=== PATIENT | female | born 1990 | race Caucasian/White ===

== ENCOUNTER 2017-10-27 19:57 | Emergency (ER) | payer BC, MEDICAID, SELFPAY ==
[2017-10-27 20:04] VITALS: BP 133/84
[2017-10-27] MEDS ORDERED: methylPREDNISolone Sodium Succinate 125 MG/2 ML SDV IVPUSH ONE (20:27)
[2017-10-27] MEDS ORDERED: Albuterol/Ipratropium 3.0-0.5 MG/3 ML Neb Soln NEB ONE ×2 (20:32→21:45)
[2017-10-27] MEDS ORDERED: Sodium Chloride 0.9% 10 ML Syringe FLUSH PRN (20:33)
--- NOTE | 2017-10-27 21:53 | EDM.PDOC ---
ED HPI GENERAL MEDICAL PROBLEM - General Chief Complaint: Respiratory Problem Stated Complaint: SOB Time Seen by Provider: 10/27/17 20:01 - History of Present Illness Onset: Today Treatments BUDGET DIRECTOR: Reports: Other (see below) Other Treatments BUDGET DIRECTOR: Valarie 1914 - Related Data Allergies Allergy/AdvReac Type Severity Reaction Status Date / Time acetaminophen [From [place]] Allergy Vomiting Verified 10/27/17 20:04 hydrocodone [From [place]] Allergy Vomiting Verified 10/27/17 20:04 Home Meds: Home Meds Fluticasone/Salmeterol [Advair 250-50] 1 puff INH DAILY 06/22/13 [History] Albuterol [Ventolin HFA] 2 inh INH Q4H PRN 04/20/14 [History] Albuterol Sulfate 2.5 mg IH Q4H PRN 05/11/14 [History] Acetaminophen [Tylenol] 650 mg PO Q4H PRN #0 tablet 05/21/14 [Rx] Ibuprofen [Motrin] 600 mg PO Q4H PRN #16 tablet 05/21/14 [Rx] Hydrocodone/Acetaminophen [Hydrocodon-Acetaminophen 5-325] 1 each PO QID PRN [History] Past Medical History - Past Health History Medical/Surgical History: Denies Medical/Surgical History Respiratory History: Reports: Asthma Gastrointestinal History: Reports: Hemorrhoids Social & Family History - Family History Family Medical History: Noncontributory - Tobacco Use Smoking Status *Q: Never Smoker - Caffeine Use Caffeine Use: Reports: None - Recreational Drug Use Recreational Drug Use: No ED ROS GENERAL - Review of Systems Review Of Systems: See Below ED EXAM, GENERAL - Physical Exam Exam: See Below Course - Vital Signs Last Recorded V/S: Last Vital Signs Temp 37.0 C 10/27/17 20:01 Pulse 100 10/27/17 20:01 Resp 22 H 10/27/17 20:01 BP 133/84 10/27/17 20:01 Pulse Ox 100 10/27/17 21:34 - Orders/Labs/Meds Orders: Active Orders 24 hr Category Date Time Status RT Aerosol Therapy [RC] ASDIRECTED Care 10/27/17 20:32 Active RT Aerosol Therapy [RC] ASDIRECTED Care 10/27/17 21:34 Active CXR [Chest 2V] [CR] Stat Exams 10/27/17 20:26 Taken Sodium Chloride 0.9% [Saline Flush] Med 10/27/17 20:33 Active 10 ml FLUSH ASDIRECTED PRN Saline Lock Insert [OM.PC] Routine Oth 10/27/17 20:33 Ordered Medication Orders Sodium Chloride (Saline Flush) 10 ml FLUSH ASDIRECTED PRN PRN Reason: Keep Vein Open Last Admin: 10/27/17 20:48 Dose: 10 ml Meds: Medications Generic Name Dose Route Start Last Admin Trade Name Freq PRN Reason Stop Dose Admin Sodium Chloride 10 ml 10/27/17 20:33 10/27/17 20:48 Saline Flush FLUSH 10 ml ASDIRECTED PRN Administration Keep Vein Open Discontinued Medications Generic Name Dose Route Start Last Admin Trade Name Freq PRN Reason Stop Dose Admin Albuterol/Ipratropium 3 ml 10/27/17 20:32 10/27/17 20:51 Duoneb 3.0-0.5 Mg/3 Ml NEB 10/27/17 20:33 3 ml ONETIME ONE Administration Albuterol/Ipratropium 3 ml 10/27/17 21:45 10/27/17 21:43 Duoneb 3.0-0.5 Mg/3 Ml NEB 10/27/17 21:46 3 ml ONETIME ONE Administration Methylprednisolone Sodium Succinate 125 mg 10/27/17 20:27 10/27/17 20:47 Solu-Medrol IVPUSH 10/27/17 20:28 125 mg ONETIME ONE Administration Departure - Departure Time of Disposition: 23:20 Disposition: Home, Self-Care 01 Condition: Good Clinical Impression: Acute asthma - Discharge Information Referrals: PCP,None [Primary Care Provider] - Forms: ED Department Discharge - My Orders Last 24 Hours: My Active Orders 10/27/17 20:26 CXR [Chest 2V] [CR] Stat 10/27/17 20:32 RT Aerosol Therapy [RC] ASDIRECTED 10/27/17 20:33 Sodium Chloride 0.9% [Saline Flush] 10 ml FLUSH ASDIRECTED PRN Saline Lock Insert [OM.PC] Routine 10/27/17 21:34 RT Aerosol Therapy [RC] ASDIRECTED - Assessment/Plan Last 24 Hours: My Active Orders 10/27/17 20:26 CXR [Chest 2V] [CR] Stat 10/27/17 20:32 RT Aerosol Therapy [RC] ASDIRECTED 10/27/17 20:33 Sodium Chloride 0.9% [Saline Flush] 10 ml FLUSH ASDIRECTED PRN Saline Lock Insert [OM.PC] Routine 10/27/17 21:34 RT Aerosol Therapy [RC] ASDIRECTED
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
--- NOTE | 2017-10-29 08:37 | CR ---
Chest: Two views of the chest were obtained. Comparison: No prior chest x-ray. Heart size and mediastinum are normal. Lungs are clear without acute parenchymal change. Bony structures are unremarkable. Impression: 1. Nothing acute is seen on two-view chest x-ray. Diagnostic code #1
== END 2017-10-27 23:40 | disposition home or self-care (01) ==
LOC: JD.ED 19:57
DX: J45.901 Unspecified asthma with (acute) exacerbation (principal); Z88.5 Allergy status to narcotic agent
CPT/HCPCS: 71046; 94640; 96374; 99285; J2930; J7050; 99283; J7620-GY

== ENCOUNTER 2017-11-18 11:15 | Emergency (ER) | payer SELFPAY ==
[2017-11-18 11:20] VITALS: BP 120/67
[2017-11-18] MEDS ORDERED: Albuterol/Ipratropium 3.0-0.5 MG/3 ML Neb Soln NEB ONE (11:49)
--- NOTE | 2017-11-18 11:55 | EDM.PDOC ---
ED HPI GENERAL MEDICAL PROBLEM - General Chief Complaint: Respiratory Problem Stated Complaint: ASTHMA ATTACK Time Seen by Provider: 11/18/17 11:45 Source of Information: Reports: Patient History Limitations: Reports: No Limitations - History of Present Illness INITIAL COMMENTS - FREE TEXT/NARRATIVE: This is a 27 y/o F with h/o asthma that comes in today with SOB/wheezing. She states she was here about 2 weeks ago for an asthma attack and then felt she got a cold about 1 week ago. She was preemptively put on Z-daily and prednisone by the ER doctor and was beginning to feel better, but about 3 days ago she started to feel worse. She currently c/o congestion, productive cough with green sputum, feeling "hot" with chills, pleuritic CP and wheezing. She states she "thinks this may have turned into something else" and is similar to when she has had PNA in the past (last time was 2 years ago). She did try OTC Tylenol this morning with no relief of pain and has tried using her inhalers at home with no relief. She is afebrile at this time, but she did take Tylenol this AM. She currently moved back from [place] and does not have a PCP in town yet. - Related Data Allergies Allergy/AdvReac Type Severity Reaction Status Date / Time acetaminophen [From [place]] Allergy Vomiting Verified 10/27/17 20:04 hydrocodone [From [place]] Allergy Vomiting Verified 10/27/17 20:04 Home Meds: Home Meds Fluticasone/Salmeterol [Advair 250-50] 1 puff INH DAILY 06/22/13 [History] Albuterol [Ventolin HFA] 2 inh INH Q4H PRN 04/20/14 [History] Albuterol Sulfate 2.5 mg IH Q4H PRN 05/11/14 [History] Acetaminophen [Tylenol] 650 mg PO Q4H PRN #0 tablet 05/21/14 [Rx] Ibuprofen [Motrin] 600 mg PO Q4H PRN #16 tablet 05/21/14 [Rx] Hydrocodone/Acetaminophen [Hydrocodon-Acetaminophen 5-325] 1 each PO QID PRN [History] Acetaminophen with Codeine [Tylenol with Codeine #3 Tablet] 1 tab PO ASDIRECTED PRN 11/18/17 [History] Past Medical History - Past Health History Medical/Surgical History: Denies Medical/Surgical History Respiratory History: Reports: Asthma Gastrointestinal History: Reports: Hemorrhoids Social & Family History - Family History Family Medical History: Noncontributory - Tobacco Use Smoking Status *Q: Never Smoker - Caffeine Use Caffeine Use: Reports: Coffee - Recreational Drug Use Recreational Drug Use: No ED ROS GENERAL - Review of Systems Review Of Systems: See Below Constitutional: Reports: Fever, Chills, Malaise, Fatigue. Denies: Night Sweats , Decreased Appetite HEENT: Reports: Glasses, Sinus Problem (congestion). Denies: Throat Pain Respiratory: Reports: Shortness of Breath, Wheezing, Pleuritic Chest Pain, Cough , Sputum (green). Denies: Hemoptysis Cardiovascular: Reports: Dyspnea on Exertion Endocrine: Reports: Fatigue GI/Abdominal: Reports: No Symptoms. Denies: Abdominal Pain, Diarrhea, Decreased Appetite, Nausea, Vomiting Skin: Reports: No Symptoms. Denies: Cyanosis Psychiatric: Reports: No Symptoms ED EXAM, GENERAL - Physical Exam Exam: See Below Exam Limited By: No Limitations General Appearance: Alert, WD/WN, No Apparent Distress Eye Exam: Bilateral Eye: EOMI, PERRL Ears: Normal External Exam, Hearing Grossly Normal Nose: Normal Inspection Throat/Mouth: Normal Inspection, Normal Lips, Normal Teeth, Normal Gums, Normal Oropharynx, Normal Voice, No Airway Compromise Neck: Normal Inspection, Supple, Non-Tender, Full Range of Motion Respiratory/Chest: No Respiratory Distress, No Accessory Muscle Use, Chest Non- Tender, Rhonchi, Wheezing (throughout lung george) Cardiovascular: Normal Peripheral Pulses, Regular Rate, Rhythm, No Edema, No Gallop, No JVD, No Murmur, No Rub GI/Abdominal: Normal Bowel Sounds, Soft, Non-Tender, No Organomegaly, No Distention, No Abnormal Bruit, No Mass Neurological: Alert, Oriented, CN II-XII Intact, Normal Cognition, Normal Gait, Normal Reflexes, No Motor/Sensory Deficits Psychiatric: Normal Affect, Normal Mood Skin Exam: Warm, Dry, Intact, Normal Color, No Rash Course - Vital Signs Last Recorded V/S: Last Vital Signs Temp 97.6 F 11/18/17 11:20 Pulse 88 11/18/17 11:20 Resp 20 11/18/17 11:20 BP 120/67 11/18/17 11:20 Pulse Ox 99 11/18/17 11:49 - Orders/Labs/Meds Orders: Active Orders 24 hr Category Date Time Status RT Aerosol Therapy [RC] ASDIRECTED Care 11/18/17 11:49 Active RT Peak Flow Measurement [RC] ASDIRECTED Care 11/18/17 12:14 Active CXR [Chest 2V] [CR] Stat Exams 11/18/17 11:48 Taken Labs: Laboratory Tests 11/18/17 Range/Units 11:58 WBC 5.89 (3.98-10.04) K/mm3 RBC 4.32 (3.98-5.22) M/mm3 Hgb 13.1 (11.2-15.7) gm/L Hct 39.5 (34.1-44.9) % MCV 91.4 (79.4-94.8) fl MCH 30.3 (25.6-32.2) pg MCHC 33.2 (32.2-35.5) g/dl RDW Std Deviation 43.2 (36.4-46.3) fL Plt Count 221 (182-369) K/mm3 MPV 10.3 (9.4-12.3) fl Neut % (Auto) 47.7 (34.0-71.1) % Lymph % (Auto) 31.9 (19.3-51.7) % [place] % (Auto) 9.3 (4.7-12.5) % Eos % (Auto) 10.4 H (0.7-5.8) Baso % (Auto) 0.5 (0.1-1.2) % Neut # (Auto) 2.81 (1.56-6.13) K/mm3 Lymph # (Auto) 1.88 (1.18-3.74) K/mm3 [place] # (Auto) 0.55 H (0.24-0.36) K/mm3 Eos # (Auto) 0.61 H (0.04-0.36) K/mm3 Baso # (Auto) 0.03 (0.01-0.08) K/mm3 Meds: Medications Discontinued Medications Generic Name Dose Route Start Last Admin Trade Name Freq PRN Reason Stop Dose Admin Albuterol/Ipratropium 3 ml 11/18/17 11:49 11/18/17 12:08 Duoneb 3.0-0.5 Mg/3 Ml NEB 11/18/17 11:50 3 ml ONETIME ONE Administration Prednisone 40 mg 11/18/17 12:03 Prednisone PO 11/18/17 12:04 ONETIME ONE - Re-Assessments/Exams Free Text/Narrative Re-Assessment/Exam: 11/18/17 12:00 Ordered CXR, CBC, Prednisone 40mg PO now and Duo nebs. 11/18/17 12:41 Labs are back and are WNL. CXR reviewed by myself and Dr. Vale with no acute abnormalities. Will check to see how pt is feeling after Duonebs and prednisone. 11/18/17 12:51 She is feeling better after treatments. Will send home with Prednisone 20mg x5 days. Departure - Departure Time of Disposition: 12:51 Disposition: Home, Self-Care 01 Condition: Fair Clinical Impression: Exacerbation of asthma - Discharge Information *PRESCRIPTION DRUG MONITORING PROGRAM REVIEWED*: Not Applicable *COPY OF PRESCRIPTION DRUG MONITORING REPORT IN PATIENT RADHA: Not Applicable Instructions: Asthma, Adult Referrals: PCP,None [Primary Care Provider] - Forms: ED Department Discharge Additional Instructions: You were seen today for SOB and wheezing with symptoms of cold. Your labs showed that you do not have an infectious process at this time and your Chest Xray did not show Pneumonia. You were given Duo-neb and prednisone with some relief and will be sent home on prednisone 20mg daily for 5 days. Follow up with clinic/Primary care doctor if symptoms do not improve. Please return to ED if worsening of symptoms, such as development of fever/ chills, difficulty breathing, worsening cough. - My Orders Last 24 Hours: My Active Orders 11/18/17 11:48 CXR [Chest 2V] [CR] Stat 11/18/17 11:49 RT Aerosol Therapy [RC] ASDIRECTED 11/18/17 12:14 RT Peak Flow Measurement [RC] ASDIRECTED - Assessment/Plan Last 24 Hours: My Active Orders 11/18/17 11:48 CXR [Chest 2V] [CR] Stat 11/18/17 11:49 RT Aerosol Therapy [RC] ASDIRECTED 11/18/17 12:14 RT Peak Flow Measurement [RC] ASDIRECTED
[2017-11-18] MEDS ORDERED: predniSONE 1 MG Tab PO ONE (12:03)
--- NOTE | 2017-11-19 07:12 | CR ---
Chest: Two views of the chest were obtained. Comparison: Prior chest x-ray of 10/27/17. Heart size and mediastinum are within normal limits. Lungs are clear. Bony structures appear unremarkable for the patient's age. Impression: 1. Nothing acute is seen on two-view chest x-ray. Diagnostic code #1
== END 2017-11-18 13:05 | disposition home or self-care (01) ==
LOC: JD.ED 11:15
DX: J45.901 Unspecified asthma with (acute) exacerbation (principal); Z88.6 Allergy status to analgesic agent
CPT/HCPCS: 36415; 71046; 71046-26; 85025; 94640; 99284; 99285-25; J7620-GY

== ENCOUNTER 2017-12-04 20:39 | Emergency (ER) | payer OTHER ==
[2017-12-04 21:08] VITALS: BP 120/65
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
--- NOTE | 2017-12-05 07:45 | US ---
Right lower extremity deep venous ultrasound: Duplex and color flow imaging was obtained of the right common femoral, proximal greater saphenous, superficial femoral, popliteal, posterior tibial and peroneal veins. Comparison: Prior right lower extremity deep venous ultrasound dated 05/21/14. Findings: Normal phasic flow, augmentation and compression are seen. Left common femoral vein also showed normal augmentation. Impression: 1. No evidence of deep venous thrombosis within the right lower extremity or within the left common femoral vein. Diagnostic code #1 I agree with preliminary report issued by [facility] ([facility] report finalized on 12/04/17, 11:49 PM Central Time)
== END 2017-12-04 23:00 | disposition home or self-care (01) ==
LOC: JD.ED 20:39
DX: M79.89 Other specified soft tissue disorders (principal); J45.909 Unspecified asthma, uncomplicated; Z79.899 Other long term (current) drug therapy
CPT/HCPCS: 93971-26-RT; 93971-RT; 99283; 99284-25

== ENCOUNTER → 2018-04-09 | Day surgery (SDC) | payer BC ==
[~2018-04-09] MED LIST: Acetaminophen/oxyCODONE 325-5 MG Tab PO PRN; Albuterol 0.083% 2.5 MG/3 ML Neb Soln NEB PRN; Dexamethasone 4 MG/ML 5 ML MDV ONE; HYDROmorphone 0.5 MG/0.5 ML Syringe IVPUSH PRN; HYDROmorphone 0.5 MG/0.5 ML Syringe ONE; Ketorolac 30 MG/ML SDV ONE; Lactated Ringers 1,000 ML IV SCH; Lactated Ringers 1,000 ML ONE; Lidocaine 1% 4 ML ONE; Lidocaine 1% with EPINEPHrine 1:100,000 20 ML MDV ONE; Lidocaine 1%/Sod Bicarbonate in NS 8.4% 1 ML Syringe IDERM PRN; Meperidine 50 MG/ML Vial IVPUSH PRN; Midazolam 1 MG/ML 2 ML SDV ONE; Neostigmine Methylsulfate 1 MG/ML 5 ML Syringe ONE; Ondansetron 4 MG/2 ML SDV IVPUSH PRN; Ondansetron 4 MG/2 ML SDV ONE; Propofol 200 MG/20 ML SDV ONE; Rocuronium 50 MG/5 ML Vial ONE; Sodium Chloride 0.9% 10 ML Syringe FLUSH PRN; Sodium Chloride 0.9% 50 ML SDV ONE; ceFAZolin 1 GM Vial ONE; fentaNYL 100 MCG/2 ML SDV IVPUSH PRN; fentaNYL 250 MCG/5 ML SDV ONE
--- NOTE | 2018-04-09 07:20 | PCM.PREANE ---
Preanesthetic Assessment - Procedure Proposed Procedure: total vag hysterectomy - Anesthesia/Transfusion/Family Hx Anesthesia History: Prior Anesthesia Without Reaction Family History of Anesthesia Reaction: No Transfusion History: No Prior Transfusion(s) - Review of Systems General: No Symptoms Pulmonary: No Symptoms Cardiovascular: No Symptoms Gastrointestinal: No Symptoms Neurological: No Symptoms (two in last 10 years), Seizure Other: Reports: None - Physical Assessment NPO Status Date: 04/08/18 NPO Status Time: 19:00 (sip with pill) O2 Sat by Pulse Oximetry: 97 Respiratory Rate: 16 Vital Signs: Last Vital Signs Temp 98.0 F 04/09/18 06:40 Pulse 95 04/09/18 06:40 Resp 16 04/09/18 06:40 BP 125/75 04/09/18 06:40 Pulse Ox 97 04/09/18 06:40 Height: 5 ft 7 in Weight: 110.223 kg ASA Class: 2 Mental Status: Alert & Oriented x3 Airway Class: Mallampati = 1 Dentition: Reports: Normal Dentition Thyro-Mental Finger Breadths: 3 Mouth Opening Finger Breadths: 3 ROM/Head Extension: Full Lungs: Clear to Auscultation, Normal Respiratory Effort Cardiovascular: Regular Rate, Regular Rhythm - Lab Values: Laboratory Last Values Urine HCG, Qual Negative (NEGATIVE) 04/09/18 06:37 - Allergies Allergies/Adverse Reactions: Allergies Allergy/AdvReac Type Severity Reaction Status Date / Time No Known Allergies Allergy Verified 04/08/18 14:13 - Blood Blood Available: Yes - Acknowledgements Anesthesia Type Planned: General Anesthesia Pt an Appropriate Candidate for the Planned Anesthesia: Yes Alternatives and Risks of Anesthesia Discussed w Pt/Guardian: Yes Pt/Guardian Understands and Agrees with Anesthesia Plan: Yes PreAnesthesia Questionnaire - Past Health History Medical/Surgical History: Denies Medical/Surgical History HEENT History: Reports: Impaired Vision, Other (See Below) Cardiovascular History: Reports: None Respiratory History: Reports: Asthma, Pneumonia, Recurrent Gastrointestinal History: Reports: Hemorrhoids Genitourinary History: Reports: None [employer]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: Endometriosis, , Other (See Below) Other OB/BYN History: x3, pelvic pain, hypermenorrhea Musculoskeletal History: Reports: None, Other (See Below) Neurological History: Reports: Seizure Other Neuro History: x 2 in the last 10 years Psychiatric History: Reports: Anxiety, Bipolar, Depression Other Psychiatric History: Appt today 01/02/18 Endocrine/Metabolic History: Reports: Obesity/BMI 30+ Other Endocrine/Metabolic History: Pt getting thyroid tested- will get results today 01/02/18 Hematologic History: Reports: None Immunologic History: Reports: None Oncologic (Cancer) History: Reports: None Dermatologic History: Reports: None - Infectious Disease History Infectious Disease History: Reports: Chicken Pox - Past Surgical History Head Surgeries/Procedures: Reports: None HEENT Surgical History: Reports: Oral Surgery, Other (See Below) Other HEENT Surgeries/Procedures: wisdom teeth removed Cardiovascular Surgical History: Reports: None Respiratory Surgical History: Reports: None GI Surgical History: Reports: Appendectomy, Cholecystectomy, EGD Female Surgical History: Reports: D&C, Other (See Below) (hystroscopy) Male Surgical History: Reports: None Neurological Surgical History: Reports: None Musculoskeletal Surgical History: Reports: Other (See Below) Other Musculoskeletal Surgeries/Procedures:: wrist tendonitis with surgical intervention Oncologic Surgical History: Reports: None Dermatological Surgical History: Reports: None - SUBSTANCE USE Smoking Status *Q: Never Smoker Tobacco Use Within Last Twelve Months: No Second Hand Smoke Exposure: No Days Per Week of Alcohol Use: 0 Recreational Drug Use History: No - HOME MEDS Home Medications: Home Meds Albuterol [Ventolin HFA] 2 inh INH Q4H PRN 04/20/14 [History] Albuterol Sulfate 1 dose NEB Q4H PRN 02/04/18 [History] Fluticasone/Vilanterol [Breo Ellipta 100-25 MCG Inhalation Kit] 1 puff INH DAILY 02/04/18 [History] OXcarbazepine [Oxcarbazepine] 450 mg PO BEDTIME 02/04/18 [History] Prazosin HCl [Prazosin] 4 mg PO BEDTIME 02/04/18 [History] OXcarbazepine [Oxcarbazepine] 150 mg PO QAM 04/08/18 [History] - CURRENT (IN HOUSE) MEDS Current Meds: Current Medications Lactated Ringer's (Ringers, Lactated) 1,000 mls @ 125 mls/hr IV ASDIRECTED CATE Stop: 04/09/18 23:00 Lidocaine/Sodium Bicarbonate (Buffered Lidocaine 1% In Ns 8.4%) 0.25 ml IDERM ONETIME PRN PRN Reason: Prior to IV Start Stop: 04/09/18 18:00 Sodium Chloride (Saline Flush) 10 ml FLUSH ASDIRECTED PRN PRN Reason: Keep Vein Open Stop: 04/09/18 18:00
--- NOTE | 2018-04-09 11:19 | PCM.OPNOTE ---
- General Post-Op/Procedure Note Date of Surgery/Procedure: 04/09/18 Operative Procedure(s): Total vaginal hysterectomy bilateral salpingectomy [id number] Pre Op Diagnosis: Dysmenorrhea, heavy and irregular menstrual periods Post-Op Diagnosis: Same Anesthesia Technique: General ET Tube Primary Surgeon: Tristan Bryan Secondary Surgeon: Vivek Yen Anesthesia Provider: Last Torres Associate Professor Of Art: Mane Brown (PATRICIO) Reason Associate Professor Of Art Was Necessary: Assist in surgery, decrease comorbidity and mortality Role of Associate Professor Of Art: Assist in surgery, decrease comorbidity and mortality Fluid Replacement, Intraop: 1,300 Output, Urine Amount: 240 EBL in mLs: 150 Drain/Tube Comments:: None Complications: None Condition: Good Free Text/Narrative:: Intake & Output 04/08/18 04/09/18 04/09/18 22:59 06:59 14:59 Output Total 240 Balance -240 Patient was transported to the operating room and placed under general anesthesia in the low dorsal lithotomy position and prepared and draped in a sterile fashion. Patient had voided on the way to the OR. SCDs in place and functioning prior surgery. Ancef 2 g given intravenously prior surgery. Timeout performed. Examination under anesthesia had revealed normal size uterus no adnexal masses decision was made to proceed with vaginal surgery. Patient was prepared and draped in a sterile fashion and injecting 20 mL of 0.25% lidocaine with epinephrine and multiple confluent areas. A circumscribing incision was then made and posterior colpotomy performed without difficulty. Utilizing LigaSure crossclamping the uterosacral cardinal ligament bundle on the left side and then right side and proceeding cephalad crossclamping activating and incising until the triple pedicle was approximated. Triple pedicle bilaterally crossclamping with Yue clamps and incised removing the uterus and cervix intact. Utilizing #1 Vicryl the pedicles were suture ligated with fore and after suture. The right and left ovaries were normal. The right tube was grasped in its entirety and removed utilizing LigaSure across the mesosalpinx. Hemostasis was normal same procedure carried out on the patient's left side. Hemostasis was normal no bleeding the posterior vaginal cuff was closed with running locking suture of 0 Monocryl. The anterior and posterior vaginal cuff were approximated after draining the bladder of 240 mL of urine. Urine was clear and yellow. The vaginal cuff was closed without difficulty and 2 additional [id number] sutures were placed for hemostasis at the vaginal cuff. No blood transfusions were required. Sponge needle pack instrument count correct 2. Patient transported postanesthesia care unit in satisfactory condition.
--- NOTE | 2018-04-09 11:21 | PCM.POSTAN ---
POST ANESTHESIA ASSESSMENT - MENTAL STATUS Mental Status: Somnolent - VITAL SIGNS Pulse Rate: 84 SaO2: 97 Resp Rate: 13 Blood Pressure: 113/60 Temperature: 97.8 F - RESPIRATORY Respiratory Status: Respiratory Rate WNL, Airway Patent, O2 Saturation Stable, Supplemental Oxygen - CARDIOVASCULAR CV Status: Pulse Rate WNL, Blood Pressure Stable - GASTROINTESTINAL GI Status: No Symptoms - PAIN Pain Score: 0 - POST OP HYDRATION Hydration Status: Adequate & Stable
[2018-04-10 07:19] VITALS: BP 113/60
--- NOTE | 2018-04-10 07:19 | PCM48HPAN ---
Post Anesthesia Note - EVALUATION WITHIN 48HRS OF ANESTHETIC Vital Signs in Normal Range: Yes Patient Participated in Evaluation: Yes Respiratory Function Stable: Yes Airway Patent: Yes Cardiovascular Function Stable: Yes Hydration Status Stable: Yes Pain Control Satisfactory: Yes Nausea and Vomiting Control Satisfactory: Yes Mental Status Recovered: Yes Pulse Rate: 84 Resp Rate: 12 Temperature: 97.8 F Blood Pressure: 113/60
== END | disposition home or self-care (01) ==
LOC: JD.SDS 06:30
PROVIDERS: ATTEND Obstetrics & Gynecology
DX: N94.6 Dysmenorrhea, unspecified (principal); N92.1 Excessive and frequent menstruation with irregular cycle; R10.2 Pelvic and perineal pain; J45.909 Unspecified asthma, uncomplicated; E66.9 Obesity, unspecified; Z68.37 Body mass index [BMI] 37.0-37.9, adult; F41.9 Anxiety disorder, unspecified; F32.9 Major depressive disorder, single episode, unspecified; Z79.899 Other long term (current) drug therapy
CPT/HCPCS: 36415; 58262; 81025; 85025; 86850; 86900; 86901; A9270; J0690; J1100; J1170; J1885; J2001; J2250; J2405; J2704; J2710; J3010; J7120; 00944

== ENCOUNTER 2018-08-20 21:52 | Emergency (ER) | payer BC ==
[2018-08-20 22:03] VITALS: BP 116/75
--- NOTE | 2018-08-20 22:13 | EDM.PDOC ---
ED HPI GENERAL MEDICAL PROBLEM - General Chief Complaint: Chest Pain Stated Complaint: chest pressure Time Seen by Provider: 08/20/18 22:07 - History of Present Illness INITIAL COMMENTS - FREE TEXT/NARRATIVE: 27-year-old female presents emergency room with chest pain. This pain has been going on for 2 days progressively getting worse now she has developed a lot of pressure with it. It is worsened with change of activity deep breathing and any sort of activity. She describes the pain is sharp. The pain is substernal and radiates to her right back. Patient has asthma, and this is doing very well at this time. She denies any fevers chills a significant cough certainly not a productive cough. At times she gets chest pressure with this. Chest Pain Score (Numeric/FACES): 7 - Related Data Allergies Allergy/AdvReac Type Severity Reaction Status Date / Time No Known Allergies Allergy Verified 08/20/18 22:01 Home Meds: Home Meds Albuterol [Ventolin HFA] 2 inh INH Q4H PRN 04/20/14 [History] Albuterol Sulfate 1 dose NEB Q4H PRN 02/04/18 [History] Fluticasone/Vilanterol [Breo Ellipta 100-25 MCG Inhalation Kit] 1 puff INH DAILY 02/04/18 [History] OXcarbazepine [Oxcarbazepine] 450 mg PO BEDTIME 02/04/18 [History] Prazosin HCl [Prazosin] 4 mg PO BEDTIME 02/04/18 [History] OXcarbazepine [Oxcarbazepine] 150 mg PO QAM 04/08/18 [History] Acetaminophen/oxyCODONE [Percocet 325-5 MG] 1 each PO Q6H #30 tab 04/09/18 [Rx] Ibuprofen [Motrin] 600 mg PO Q6H PRN #50 tab 04/09/18 [Rx] Ondansetron [Zofran ODT] 4 mg PO Q6H PRN #20 tab.dis 04/09/18 [Rx] Past Medical History - Past Health History Medical/Surgical History: Denies Medical/Surgical History HEENT History: Reports: Impaired Vision, Other (See Below) Cardiovascular History: Reports: None Respiratory History: Reports: Asthma, Pneumonia, Recurrent Gastrointestinal History: Reports: Hemorrhoids Genitourinary History: Reports: None [employer] 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, , Other (See Below) 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, pelvic pain, hypermenorrhea Musculoskeletal History: Reports: None, Other (See Below) Neurological History: Reports: Seizure Other Neuro History: x 2 in the last 10 years Psychiatric History: Reports: Anxiety, Bipolar, Depression Other Psychiatric History: Appt today 01/02/18 Endocrine/Metabolic History: Reports: Obesity/BMI 30+ Other Endocrine/Metabolic History: Pt getting thyroid tested- will get results today 01/02/18 Hematologic History: Reports: None Immunologic History: Reports: None Oncologic (Cancer) History: Reports: None Dermatologic History: Reports: None - Infectious Disease History Infectious Disease History: Reports: Chicken Pox - Past Surgical History Head Surgeries/Procedures: Reports: None HEENT Surgical History: Reports: Oral Surgery, Other (See Below) Other HEENT Surgeries/Procedures: wisdom teeth removed Cardiovascular Surgical History: Reports: None Respiratory Surgical History: Reports: None GI Surgical History: Reports: Appendectomy, Cholecystectomy, EGD Female Surgical History: Reports: D&C, Other (See Below) (hystroscopy) Male Surgical History: Reports: None Neurological Surgical History: Reports: None Musculoskeletal Surgical History: Reports: Other (See Below) Other Musculoskeletal Surgeries/Procedures:: wrist tendonitis with surgical intervention Oncologic Surgical History: Reports: None Dermatological Surgical History: Reports: None Social & Family History - Family History Family Medical History: Noncontributory - Caffeine Use Caffeine Use: Reports: Coffee Other Caffeine Use: 1/day - Living Situation & Occupation Living situation: Reports: , with Spouse, with Family (3 kids) Occupation: Employed (At-home, [employer]) ED ROS GENERAL - Review of Systems Review Of Systems: See Below Constitutional: Reports: No Symptoms HEENT: Reports: No Symptoms Respiratory: Reports: Pleuritic Chest Pain, Other (Painful deep breathing). Denies: Shortness of Breath Cardiovascular: Reports: Chest Pain, Other (Pleuritic chest pain). Denies: Dyspnea on Exertion, Palpitations Endocrine: Reports: No Symptoms GI/Abdominal: Reports: No Symptoms : Reports: No Symptoms Musculoskeletal: Reports: No Symptoms Neurological: Reports: No Symptoms Psychiatric: Reports: No Symptoms ED EXAM, GENERAL - Physical Exam Exam: See Below Exam Limited By: No Limitations General Appearance: Alert, No Apparent Distress Head: Atraumatic, Normocephalic Neck: Normal Inspection, Supple, Non-Tender, Full Range of Motion Respiratory/Chest: No Respiratory Distress, Lungs Clear, Normal Breath Sounds, Other (Pain that turgor both palpation) Cardiovascular: Regular Rate, Rhythm, No Edema, No Murmur GI/Abdominal: Normal Bowel Sounds, Soft, Non-Tender Course - Vital Signs Last Recorded V/S: Last Vital Signs Temp 36.9 C 08/20/18 22:01 Pulse 70 08/20/18 22:01 Resp 16 08/20/18 22:01 BP 116/75 08/20/18 22:01 Pulse Ox 100 08/20/18 22:01 - Orders/Labs/Meds Orders: Active Orders 24 hr Category Date Time Status EKG Documentation Completion [RC] ASDIRECTED Care 08/20/18 22:15 Active Ang Chest [CT] Stat Exams 08/20/18 23:08 Taken Chest 2V [CR] Stat Exams 08/20/18 22:13 Taken Sodium Chloride 0.9% [Normal Saline] 1,000 ml Med 08/20/18 23:15 Active IV ASDIRECTED EKG 12 Lead [EK] Stat Ther 08/20/18 22:13 Ordered Medication Orders Sodium Chloride (Normal Saline) 1,000 mls @ 150 mls/hr IV ASDIRECTED [facility] Labs: Laboratory Tests 08/20/18 08/20/18 08/20/18 Range/Units 22:26 22:26 22:26 WBC 7.36 (3.98-10.04) K/mm3 RBC 4.05 (3.98-5.22) M/mm3 Hgb 12.3 (11.2-15.7) gm/L Hct 37.3 (34.1-44.9) % MCV 92.1 (79.4-94.8) fl MCH 30.4 (25.6-32.2) pg MCHC 33.0 (32.2-35.5) g/dl RDW Std Deviation 41.6 (36.4-46.3) fL Plt Count 195 (182-369) K/mm3 MPV 11.3 (9.4-12.3) fl Neutrophils % (Manual) 54 (40-60) % Band Neutrophils % 0 (0-10) % Lymphocytes % (Manual) 36 (20-40) % Atypical Lymphs % 1 % Monocytes % (Manual) 4 (2-10) % Eosinophils % (Manual) 3 (0.7-5.8) % Basophils % (Manual) 2 H (0.1-1.2) Platelet Estimate Adequate RBC Morph Comment Normal PT (9.5-12.1) SECONDS INR APTT (24-31) SECONDS D-Dimer, Quantitative 2.61 H (0.19-0.50) mg/L Sodium (136-145) mEq/L Potassium (3.5-5.1) mEq/L Chloride (98-107) mEq/L Carbon Dioxide (21-32) mEq/L Anion Gap (5-15) BUN (7-18) mg/dL Creatinine (0.55-1.02) mg/dL Est Cr Clr Drug Dosing mL/min Estimated GFR (MDRD) (>60) mL/min BUN/Creatinine Ratio (14-18) Glucose (74-106) mg/dL Calcium (8.5-10.1) mg/dL C-Reactive Protein 0.2 (<1.0) mg/dL 08/20/18 08/20/18 Range/Units 22:26 22:26 WBC (3.98-10.04) K/mm3 RBC (3.98-5.22) M/mm3 Hgb (11.2-15.7) gm/L Hct (34.1-44.9) % MCV (79.4-94.8) fl MCH (25.6-32.2) pg MCHC (32.2-35.5) g/dl RDW Std Deviation (36.4-46.3) fL Plt Count (182-369) K/mm3 MPV (9.4-12.3) fl Neutrophils % (Manual) (40-60) % Band Neutrophils % (0-10) % Lymphocytes % (Manual) (20-40) % Atypical Lymphs % % Monocytes % (Manual) (2-10) % Eosinophils % (Manual) (0.7-5.8) % Basophils % (Manual) (0.1-1.2) Platelet Estimate RBC Morph Comment PT 10.3 (9.5-12.1) SECONDS INR 0.94 APTT 26 (24-31) SECONDS D-Dimer, Quantitative (0.19-0.50) mg/L Sodium 141 (136-145) mEq/L Potassium 4.0 (3.5-5.1) mEq/L Chloride 105 (98-107) mEq/L Carbon Dioxide 25 (21-32) mEq/L Anion Gap 15.0 (5-15) BUN 19 H (7-18) mg/dL Creatinine 1.0 (0.55-1.02) mg/dL Est Cr Clr Drug Dosing 86.00 mL/min Estimated GFR (MDRD) > 60 (>60) mL/min BUN/Creatinine Ratio 19.0 H (14-18) Glucose 87 (74-106) mg/dL Calcium 8.8 (8.5-10.1) mg/dL C-Reactive Protein (<1.0) mg/dL Meds: Medications Generic Name Dose Route Start Last Admin Trade Name Freq PRN Reason Stop Dose Admin Sodium Chloride 1,000 mls @ 150 mls/hr 08/20/18 23:15 Normal Saline IV ASDIRECTED CATE Discontinued Medications Generic Name Dose Route Start Last Admin Trade Name Freq PRN Reason Stop Dose Admin Fentanyl 50 mcg 08/20/18 23:38 08/20/18 23:45 Sublimaze IVPUSH 08/20/18 23:39 50 mcg ONETIME ONE Administration Sodium Chloride 500 mls @ 999 mls/hr 08/20/18 23:06 08/20/18 23:17 Normal Saline IV 08/20/18 23:36 999 mls/hr .BOLUS ONE Administration Ketorolac Tromethamine 15 mg 08/21/18 00:32 08/21/18 00:36 Toradol IVPUSH 08/21/18 00:33 15 mg ONETIME ONE Administration - Re-Assessments/Exams Free Text/Narrative Re-Assessment/Exam: 08/20/18 23:10 Patient has an elevated d-dimer was started on IV fluids and check a CTA PE protocol 08/21/18 00:43 CTA was negative for PE was suggestive perhaps of some air trapping secondary to reactive airway disease. Patient will maintain her usual asthma therapy as she is doing pretty good with it at this point patient will be given 15 mg of IV Toradol she uses Naprosyn on a when necessary basis has not used it for quite some time now she does not use ibuprofen as stated in her med list. Departure - Departure Time of Disposition: 00:44 Disposition: Home, Self-Care 01 Clinical Impression: Chest pain, pleuritic Referrals: Naima Loaiza MD [Primary Care Provider] - Forms: ED Department Discharge Additional Instructions: Return to the emergency room with any questions problems worsening symptoms. Follow-up with your regular provider in one week. Use your naproxen up to 500 mg twice daily with meals I am not sure what your prescription naproxen dose is but double check. If you using [id number] take 2 twice daily with meals. - My Orders Last 24 Hours: My Active Orders 08/20/18 22:13 Chest 2V [CR] Stat EKG 12 Lead [EK] Stat 08/20/18 22:15 EKG Documentation Completion [RC] ASDIRECTED 08/20/18 23:08 Ang Chest [CT] Stat 08/20/18 23:15 Sodium Chloride 0.9% [Normal Saline] 1,000 ml IV ASDIRECTED - Assessment/Plan Last 24 Hours: My Active Orders 08/20/18 22:13 Chest 2V [CR] Stat EKG 12 Lead [EK] Stat 08/20/18 22:15 EKG Documentation Completion [RC] ASDIRECTED 08/20/18 23:08 Ang Chest [CT] Stat 08/20/18 23:15 Sodium Chloride 0.9% [Normal Saline] 1,000 ml IV ASDIRECTED
[2018-08-20] MEDS ORDERED: Sodium Chloride 0.9% 500 ML IV ONE (23:06)
[2018-08-20] MEDS ORDERED: Sodium Chloride 0.9% 1,000 ML IV SCH (23:15)
[2018-08-20] MEDS ORDERED: fentaNYL 100 MCG/2 ML SDV IVPUSH ONE (23:38)
[2018-08-21] MEDS ORDERED: Ketorolac 15 MG/ML SDV IVPUSH ONE (00:32)
--- NOTE | 2018-08-21 08:58 | CT ---
CT chest Technique: Multiple axial sections through the chest were obtained. Intravenous contrast was utilized. Study has been performed as a pulmonary angiogram protocol. Comparison: No prior chest CT, prior chest x-ray performed one day earlier on 08/20/18. Findings: Pulmonary arteries are well opacified. No filling defects are seen to indicate pulmonary embolism. No pericardial effusion is seen. Mediastinum and hilar regions are within normal limits. Small portion of the visualized upper abdominal structures are within normal limits. Patchy areas of ground-glass are noted within both posterior lungs. Differential includes subsegmental atelectasis as well as change from bronchitis/bronchiolitis. No alveolar type densities are seen within the chest. Bone window settings were reviewed which show no acute osseous abnormality. Impression: 1. Slight ground-glass within the posterior lungs with differential including subsegmental atelectasis as well as change from bronchitis/bronchiolitis. 2. No findings of pulmonary embolism. Nothing acute is otherwise seen. Diagnostic code #3 I agree with preliminary report from [facility], finalized on 08/21/18, 1:23 AM Central Time
--- NOTE | 2018-08-21 08:58 | CR ---
Chest: Two views of the chest were obtained. Comparison: Previous chest x-ray of 11/18/17. Heart size and mediastinum are normal. Lungs are clear. Bony structures are unremarkable. Impression: 1. Nothing acute is identified on two-view chest x-ray. Diagnostic code #1
== END 2018-08-21 00:55 | disposition home or self-care (01) ==
LOC: JD.ED 21:52
DX: R07.81 Pleurodynia (principal); F41.9 Anxiety disorder, unspecified; F32.9 Major depressive disorder, single episode, unspecified; Z79.899 Other long term (current) drug therapy
CPT/HCPCS: 36415; 71046; 71275; 80048; 85007; 85027; 85379; 85610; 85730; 86140; 93005; 96361; 96374; 96375; 99285; J1885; J3010; J7040; 93010; 99284

== ENCOUNTER 2019-07-14 18:53 | Emergency (ER) | payer BC, OTHER ==
[2019-07-14 19:10] VITALS: BP 103/54; PULSE 85
[2019-07-14] MEDS ORDERED: Gabapentin 300 MG Cap PO ONE (19:55)
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
== END 2019-07-14 20:10 | disposition home or self-care (01) ==
LOC: JD.ED 18:53
DX: M79.604 Pain in right leg (principal); J45.909 Unspecified asthma, uncomplicated; F31.9 Bipolar disorder, unspecified; F41.9 Anxiety disorder, unspecified; E66.9 Obesity, unspecified; Z79.899 Other long term (current) drug therapy; Z88.6 Allergy status to analgesic agent; Z68.37 Body mass index [BMI] 37.0-37.9, adult
CPT/HCPCS: 99283; A9270-GY

== ENCOUNTER 2019-07-17 00:47 | Emergency (ER) | payer OTHER ==
[2019-07-17 00:58] VITALS: BP 126/74; PULSE 84
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
[2019-07-17] MEDS ORDERED: Acetaminophen/oxyCODONE 325-5 MG Tab PO ONE (01:53)
== END 2019-07-17 02:02 | disposition home or self-care (01) ==
LOC: JD.ED 00:47
DX: G57.71 Causalgia of right lower limb (principal); Z88.6 Allergy status to analgesic agent; E66.9 Obesity, unspecified; Z88.5 Allergy status to narcotic agent; J45.909 Unspecified asthma, uncomplicated; Z79.899 Other long term (current) drug therapy; Z68.37 Body mass index [BMI] 37.0-37.9, adult
CPT/HCPCS: 99283; A9270-GY